=== PATIENT | female | born 2000 | race African-American/Black ===

== ENCOUNTER 2021-12-31 12:47 | Emergency (ER) | payer OTHER, SELFPAY ==
[2021-12-31 13:33] VITALS: BP 110/52; PULSE 74; RESP 18; TEMP 36.1; O2SAT 99; BMI 32.4
[2021-12-31 14:04] LABS: Bacteria Urine Moderate (10-30); Culture Indicated Urine Cult Not Indicated; Mucus Urine 2+ (Negative); RBC Urine 1-5/HPF (0-5/HPF); Squamous Epithelial Cell Urine 5-10 /HPF (0-5/HPF); WBC Urine 1-5/HPF (0-5/HPF)
--- NOTE | 2021-12-31 14:36 | ED_ITS ---
HPI - Back Pain/Injury <DANAE Gonzales - Last Filed: 12/31/21 14:44> General Chief Complaint: Back Pain/Injury Stated Complaint: Severe back pain from middle to tailbone Time Seen by Provider: 12/31/21 14:08 Source: patient History of Present Illness HPI Narrative: This is a 21-year-old female who presents to the emergency department complaining of 2 weeks with low back pain on either side of her hips. Patient states that this is not traumatic she did not have any known injury, she states that she was driving in the car for a few hours and had worsening bilateral muscular pain. She denies any weakness in her lower extremities, denies any urinary incontinence, fever, sharp shooting pain, or sensation changes. Patient denies any jumping or traumatic injuries recently. Patient states her primary care provider is on the [employer], and she has not gone to have this evaluated yet. Patient denies if she knows if she is , denies any fever, abdominal pain, flank pain, dysuria, urinary frequency or other symptom. Related Data Previous Rx's Medication Instructions Recorded lidocaine 5 % topical patch 1 patch TOPICAL DAILY #15 ea 12/31/21 methocarbamol 500 mg tablet 500 mg PO TID PRN #14 tab 12/31/21 naproxen 250 mg tablet 250 mg PO BID PRN #14 tab 12/31/21 Allergies Allergy/AdvReac Type Severity Reaction Status Date / Time No Known Drug Allergies Allergy Verified 12/31/21 13:39 Review of Systems <DANAE Gonzales - Last Filed: 12/31/21 14:44> Review of Systems Narrative: General: denies fever, chills, malaise, sweats, fatigue Head/Neck: denies headache, neck pain, dizziness Eyes: denies visual changes, eye pain Cardio: denies chest pain, palpitations, edema Respiratory: denies dyspnea, cough, orthopnea GI: denies abdominal pain, nausea, vomiting, or diarrhea : denies dysuria, hematuria, urinary retention, frequency or incontinence MSK: denies joint pain, muscle weakness, endorses low musculoskeletal back pain. Denies any radiation, states it is equal bilaterally, nontender to touch Skin: denies rash, itching, skin lesions or other Neuro: denies numbness, tingling Patient History <DANAE Gonzales - Last Filed: 12/31/21 14:44> Social History Smoking Status: Current every day smoker Smoking Status: Current every day smoker tobacco type: cigars and vaping alcohol intake frequency: a few times a month Substance Use Type: does not use Exam <DANAE Gonzales - Last Filed: 12/31/21 14:44> Narrative Exam Narrative: Independently reviewed vitals signs and nursing notes. General: cooperative, comfortable, in no acute distress, well developed and well groomed Head: atraumatic, symmetrical facial expressions Neck: supple, atraumatic, without lymphadenopathy. Eyes: pupils equal round and reactive, EOMI, conjunctiva normal Nose: nares patent, no rhinorrhea Mouth/Throat: uvula midline, moist mucus membranes Cardiovascular: regular rate and rhythm, no peripheral edema, warm extremities Respiratory: normal effort, able to speak in complete sentences, no audible wheezing, stridor, or rales. No retractions or tachypnea. GI: abdomen soft, nontender to palpation, nondistended, no CVA tenderness or flank pain to palpation MSK: moves all extremities, ambulatory w/steady gait, neurovascularly intact, no weakness, no exacerbation of pain with leg lift, strength is grossly equal bilaterally, neurovascularly intact Skin: brisk capillary refill, no rash, no erythema Neuro: normal speech and cognition, A&O x3, normal tone Psych: mental status is grossly normal, congruent mood, normal affect, pleasant and cooperative Initial Vital Signs Initial Vital Signs: Vital Signs Temperature 97.0 F L 12/31/21 13:33 Pulse Rate 74 12/31/21 13:33 Respiratory Rate 18 12/31/21 13:33 Blood Pressure 110/52 L 12/31/21 13:33 Pulse Oximetry 99 12/31/21 13:33 <Jolene Wilkins MD - Last Filed: 01/01/22 07:39> Initial Vital Signs Initial Vital Signs: Vital Signs Temperature 97.0 F L 12/31/21 13:33 Pulse Rate 74 12/31/21 13:33 Respiratory Rate 18 12/31/21 13:33 Blood Pressure 110/52 L 12/31/21 13:33 Pulse Oximetry 99 12/31/21 13:33 Course <DANAE Gonzales - Last Filed: 12/31/21 14:44> Orders Ordered: Discontinued Medications Acetaminophen (Acetaminophen 325 Mg Tablet) 650 mg PO NOW ONE Stop: 12/31/21 14:17 Last Admin: 12/31/21 14:37 Dose: 650 mg Documented by: ATAYLOR Ketorolac Tromethamine (Ketorolac 30 Mg/Ml Vial) 15 mg IM NOW ONE Stop: 12/31/21 14:17 Last Admin: 12/31/21 14:37 Dose: 15 mg Documented by: ATAYLOR Lidocaine (Lidocaine Patch 1 Each Adh..Patch) 1 each TOP NOW ONE Stop: 12/31/21 14:17 Last Admin: 12/31/21 14:38 Dose: 1 each Documented by: DOMONIQUEYLROE Methocarbamol (Methocarbamol 500 Mg Tablet) 500 mg PO NOW ONE Stop: 12/31/21 14:17 Last Admin: 12/31/21 14:37 Dose: 500 mg Documented by: VERONICA Vital Signs Vital signs: Vital Signs - 8 hr 12/31/21 13:33 Temperature 97.0 F L Pulse Rate 74 Respiratory Rate 18 Blood Pressure 110/52 L Pulse Oximetry 99 <Jolene Wilkins MD - Last Filed: 01/01/22 07:39> Orders Ordered: Discontinued Medications Acetaminophen (Acetaminophen 325 Mg Tablet) 650 mg PO NOW ONE Stop: 12/31/21 14:17 Last Admin: 12/31/21 14:37 Dose: 650 mg Documented by: ATAYLOR Ketorolac Tromethamine (Ketorolac 30 Mg/Ml Vial) 15 mg IM NOW ONE Stop: 12/31/21 14:17 Last Admin: 12/31/21 14:37 Dose: 15 mg Documented by: ATAYLOR Lidocaine (Lidocaine Patch 1 Each Adh..Patch) 1 each TOP NOW ONE Stop: 12/31/21 14:17 Last Admin: 12/31/21 14:38 Dose: 1 each Documented by: DOMONIQUEYLOR Methocarbamol (Methocarbamol 500 Mg Tablet) 500 mg PO NOW ONE Stop: 12/31/21 14:17 Last Admin: 12/31/21 14:37 Dose: 500 mg Documented by: VERONICA Vital Signs Vital signs: Vital Signs - 8 hr 12/31/21 13:33 Temperature 97.0 F L Pulse Rate 74 Respiratory Rate 18 Blood Pressure 110/52 L Pulse Oximetry 99 MDM - Back Pain/Injury <Wilma DANAE Long - Last Filed: 12/31/21 14:44> Lab Data Labs: Lab Results 12/31/21 Range/Units 13:45 Urine RBC 1-5/hpf (0-5/HPF) Urine WBC 1-5/hpf (0-5/HPF) Ur Squamous Epith Cells 5-10 /hpf H (0-5/HPF) Urine Bacteria Moderate (10-30) H (None) Urine Mucus 2+ H (Negative) Ur Culture Indicated? Cult not indicated Point of Care Testing Test Results Negative Urine Dip Bedside Urine Glucose Negative Bedside Urine Bilirubin - Negative Bedside Urine Ketone - Negative Urine Specific [place] 1.02 Bedside Urine Occult Blood - Negative Bedside Urine pH 6 Bedside Urine Protein +/- 15 Bedside Urine Urobilinogen - Negative Bedside Urine Nitrite - Negative Bedside Urine Leukocytes - Negative Esterase MDM Narrative Medical decision making narrative: This is a 21-year-old female presents to the emergency department complaining of 2 weeks of low back pain without injury or trauma. She is afebrile, denies any dysuria, abdominal pain, nausea vomiting, or any other symptom. Her strength is grossly equal bilaterally, she is ambulatory, denies any sharp shooting pains or radiation of her bilateral lumbar pain. She states it feels like muscle spasms and feels tense. On exam patient did not have any point tenderness to her spine, she is without any neuro deficit, this is most likely a muscle strain muscle tension. She denies any incontinence, weakness, alteration in her gait or other pain. Recommend that she follow-up with her primary care provider who is at the [facility] and ask for referral to physical therapy. Patient was given strict return precautions. Urine was negative, urine microscopy showed moderate bacteria, no blood or white blood cells. Patient is asymptomatic without dysuria or urinary frequency. No CVA tenderness. No antibiotics prescribed. Patient was given lidocaine patch, methocarbamol, Toradol in the emergency department, and prescribed lidocaine patches, methocarbamol, naproxen for pain. Multiple etiologies of back pain considered including; Epidural abscess, cauda equina, mass occupying lesion, lumbar fracture, sciatica, intra-abdominal pathology chronic neuropathic pain and other considered. Patient is appropriate and amenable to discharge home. Vital signs are stable on repeat examination is unremarkable. Patient has been informed of results. Patient has been given strict return to ER precautions for any new or worsening symptoms. Patient understands to follow up closely with outpatient providers as instructed. Patient understands plan and agrees to discharge home. All questions and concerns answered at this time. <Jolene Wilkins MD - Last Filed: 01/01/22 07:39> Lab Data Labs: Lab Results 12/31/21 Range/Units 13:45 Urine RBC 1-5/hpf (0-5/HPF) Urine WBC 1-5/hpf (0-5/HPF) Ur Squamous Epith Cells 5-10 /hpf H (0-5/HPF) Urine Bacteria Moderate (10-30) H (None) Urine Mucus 2+ H (Negative) Ur Culture Indicated? Cult not indicated Point of Care Testing Test Results Negative Urine Dip Bedside Urine Glucose Negative Bedside Urine Bilirubin - Negative Bedside Urine Ketone - Negative Urine Specific [place] 1.02 Bedside Urine Occult Blood - Negative Bedside Urine pH 6 Bedside Urine Protein +/- 15 Bedside Urine Urobilinogen - Negative Bedside Urine Nitrite - Negative Bedside Urine Leukocytes - Negative Esterase Discharge Plan Departure Patient Disposition: Home Clinical Impression: Strain of lumbar region Qualifiers: Encounter type: initial encounter Qualified Code(s): S39.012A - Strain of muscle, fascia and tendon of lower back, initial encounter Instructions: DI for Muscle Strain, DI for Back Spasm Activity Restrictions/Additional Instructions: *You have been diagnosed with low back pain and muscle spasms. This does not sound like sciatica and sounds like musculoskeletal pain. Please use light activity like walking in gentle stretching to loosen up, heat, Tylenol, ibuprofen as needed, lidocaine patches, and muscle relaxers as you need them to get through the weekend until you can follow-up with your primary care provider and get a referral for physical therapy. I recommend physical therapy over medications that it will take some time to get in. Please do all these things and see if you get better. Wishing you the best. *What to do: *Please continue to take your regular medications as directed. [x ] New medication prescriptions sent to your pharmacy: [[facility]] [ ] New medication written as a paper prescription [ ] No new medications given *Please follow up with your primary care provider in 2-3 days, call for an appointment. Let them know you were seen in the Emergency Department and that we asked that you be seen for follow-up. We will electronically transmit a record of today's note if your PCP is in our system *If you do not have a primary care provider please contact [phone] to establish care with one of the [facility] primary care providers. *Return to Emergency Department if you should have any new, worsening or concerning symptoms, such as [fever greater than 101F, chills, worsening pain, persistent vomiting or other bothersome symptoms] Prescriptions: New methocarbamol 500 mg tablet 500 mg PO TID PRN (Reason: muscle spasm) Qty: 14 0RF lidocaine 5 % adhesive patch,medicated 1 patch topical DAILY Qty: 15 0RF Rx Instructions: leave on most painful area for up to 12 hrs naproxen 250 mg tablet 250 mg PO BID PRN (Reason: pain) Qty: 14 0RF Rx Instructions: Please take with food and water <Jolene Wilkins MD - Last Filed: 01/01/22 07:39> Cosign ED Attending Cosignature Attestation: I was immediately available in the department for consultation throughout this patient's visit. I agree with documentation as above. Jolene Wilkins MD
[2021-12-31] MEDS: KETOROLAC 30 MG/ML VIAL 15 MG IM (14:37)
[2021-12-31] MEDS: methocarbamoL 500 MG TABLET PO (14:37)
[2021-12-31] MEDS: ACETAMINOPHEN 325 MG TABLET 650 MG PO (14:37)
[2021-12-31] MEDS: LIDOCAINE PATCH 1 EACH ADH..PATCH TOP (14:38)
== END 2021-12-31 15:01 | disposition home or self-care (01) ==
PROVIDERS: Emergency Medicine; Emergency Provider Nurse Practitioner Critical Care Medicine
DX: S39.012A Strain of muscle, fascia and tendon of lower back, initial encounter (principal); F17.290 Nicotine dependence, other tobacco product, uncomplicated; X58.XXXA Exposure to other specified factors, initial encounter
CPT/HCPCS: 81003; 81015; 81025; 96372; 99283; 99284; J1885

== ENCOUNTER → 2023-01-18 18:18 | Outpatient (CLI) | payer OTHER, SELFPAY ==
--- NOTE | 2023-01-18 | DI.MRI.S_ITS ---
PROCEDURE: MR ORBITS FACE NECK WO/W CON INDICATIONS: [place] of optic disc, unspecified eye TECHNIQUE: Noncontrast sagittal T1 spin echo, axial FLAIR, axial gradient echo, axial diffusion and ADC acquired through the brain. Coronal STIR, thin-slice axial T1 spin echo through the orbits. After the administration of contrast, thin-slice axial and coronal T1 spin echo with fat saturation through the orbits, axial and coronal and sagittal T1 spin echo with fat saturation through the brain. COMPARISON: None. FINDINGS: Image quality: Excellent. Orbits: Globes are symmetrical. The optic nerves are normal in size, without abnormal signal or enhancement. No retrobulbar masses or fat abnormalities. The extra-ocular muscles are normal and symmetric in appearance. Lacrimal glands are normal. Optic chiasm is normal. Periorbital soft tissues appear normal. CSF spaces: Ventricles are normal in size and shape. Basal cisterns are patent. No extra-axial fluid collections. Brain: No intracranial bleeds or mass effects. No abnormal intracranial enhancement. Newell-white matter interface is intact. Diffusion weighted images demonstrate no acute ischemic insults. Pituitary gland appears normal, without sellar or suprasellar masses. Brainstem appears normal. Normal intravascular flow voids are present. Skull and face: Calvarial marrow is normal in signal. Sinuses: Sinuses and mastoids are clear. IMPRESSION: 1. No acute intracranial process. 2. Globes and orbits are unremarkable. Dictated by: Camilla Hercules M.D. on 01/19/2023 at 9:47 Approved by: Camilla Hercules M.D. on 01/19/2023 at 9:52
== END ==
PROVIDERS: Referring Provider Optometrist; Visit Provider Optometrist
DX: H47.329 Drusen of optic disc, unspecified eye (principal)
CPT/HCPCS: 70543; A9579

== ENCOUNTER 2023-05-24 16:43 | Emergency (ER) | payer OTHER, SELFPAY ==
[2023-05-24 16:48] VITALS: BP 137/82; PULSE 81; RESP 18; TEMP 36.7; O2SAT 100; BMI 34.2
--- NOTE | 2023-05-24 18:12 | ED.HA ---
HPI - Headache General Chief Complaint: Headache Stated Complaint: migraines and cramps Time Seen by Provider: 05/24/23 18:06 Mode of arrival: Ambulatory History of Present Illness HPI Narrative: 22-year-old female nonsmoker presents with a chief complaint of episodic headaches that happen most days. She states that this has been going on for many months if not longer and might be increasing in frequency. She is not currently having a headache but states she did earlier and wanted to be checked out. She states they seem to come and go, sometimes going away quickly other times lasting a few hours. When present there is no obvious provocation or palliation, no radiation, no recent trauma or injury, no fever, no neck pain. She is been seen and evaluated on multiple occasions and has a consultation with a headache specialist. She is had advanced imaging even MRI without any significant findings. Additionally she states that she is been having some left-sided abdominal cramping off and on for the past few weeks. There is no obvious provocation, palliation or radiation. No nausea, vomiting or diarrhea. No change in medications or diet. No dysuria, frequency or urgency, no vaginal bleeding or discharge Related Data Previous Rx's Medication Instructions Recorded lidocaine 5 % topical patch 1 patch topical DAILY #15 ea 12/31/21 methocarbamol 500 mg tablet 500 mg PO TID PRN muscle spasm #14 12/31/21 tabs naproxen 250 mg tablet 250 mg PO BID PRN pain #14 tabs 12/31/21 Allergies Allergy/AdvReac Type Severity Reaction Status Date / Time No Known Drug Allergies Allergy Verified 05/24/23 16:54 Review of Systems Review of Systems Narrative: GENERAL: Denies chills, fatigue, malaise, fever, sweats. HEENT: Denies sinus pain, ear pain, sore throat, difficulty swallowing, dizziness. RESPIRATORY: Denies dyspnea, cough, wheezing, hemoptysis, sputum. CARDIOVASCULAR: Denies chest pain, palpitations, orthopnea, edema, GASTROINTESTINAL: See HPI : Denies dysuria, frequency, incontinence, hematuria, urinary retention. MUSCULOSKELETAL: denies weakness, joint pain, or bony pain SKIN: Denies rash, skin lesions, or other NEUROLOGIC: See HPI PSYCHIATRIC: No concerning psychosocial issues. 12 point review of systems is negative except for those stated above Patient History Social History (Reviewed 05/25/23 @ 03:08 by MIQUEL Salmeron Smoking Status: Former smoker Smoking Status: Former smoker tobacco type: cigars and vaping alcohol intake frequency: holidays/special occasions only Substance Use Type: does not use Exam Narrative Exam Narrative: GENERAL: [22] year old patient appears stated age. Well-developed patient, in mild distress. HEAD: Atraumatic. Normocephalic. EYES: Pupils equal round and reactive. Extraocular motions intact. No scleral icterus. No injection or drainage. ENT: Nose without bleeding, purulent drainage. Throat without erythema, tonsillar hypertrophy or exudate. Airway patent. NECK: Trachea midline. Non tender CARDIOVASCULAR: Regular rate and rhythm without murmurs, gallops, or rubs. RESPIRATORY: Clear to auscultation. Breath sounds equal bilaterally. No wheezes, rales, or rhonchi. GASTROINTESTINAL: Abdomen soft, non-tender, nondistended. EXTREMITIES: No edema or joint tenderness. BACK: Nontender without deformity or crepitance. No flank tenderness. NEURO: AOx3. SKIN: No rash or erythema of visible areas Initial Vital Signs Initial Vital Signs: Vital Signs Temperature 98.0 F 05/24/23 16:48 Pulse Rate 81 05/24/23 16:48 Respiratory Rate 18 05/24/23 16:48 Blood Pressure 137/82 05/24/23 16:48 Pulse Oximetry 100 05/24/23 16:48 Oxygen Delivery Method Room Air 05/24/23 16:48 Course Orders Ordered: ED Orders 05/24/23 19:39 XR acute abdomen series Stat 05/24/23 19:55 CBC Auto Diff [Complete Blood Count AUTO DIFF] Stat CMP [Comprehensive Metabolic Panel] Stat Vital Signs Vital signs: Vital Signs - 8 hr 05/24/23 20:24 Pulse Rate 74 Blood Pressure 104/66 Pulse Oximetry 99 Oxygen Delivery Method Room Air MDM - Headache Lab Data 05/24/23 19:55 05/24/23 19:55 Labs: Lab Results 05/24/23 05/24/23 Range/Units 19:55 19:55 WBC 7.3 (4.5-11.0) X10^3/uL RBC 4.55 (4.0-5.2) X10^6/uL Hgb 12.2 (12.0-16.0) g/dL Hct 37.7 (36-46) % MCV 82.8 (80-100) fL MCH 26.9 (26-34) PG MCHC 32.5 (30-36) % RDW 13.9 (11.6-14.8) % Plt Count 253 (150-400) X10^3/uL Neut % (Auto) 51.0 (50-75) % Lymph % (Auto) 38.7 (25-40) % [place] % (Auto) 8.8 (3-14) % Eos % (Auto) 0.8 L (2-4) % Baso % (Auto) 0.7 (0-2) % Neut # (Auto) 3700 (5741-4152) /uL Lymph # (Auto) 2800 (3059-7597) /uL [place] # (Auto) 600 (0-900) /uL Eos # (Auto) 100 (0-450) /uL Baso # (Auto) 100 (0-100) /uL Sodium 136 L (137-145) mmol/L Potassium 4.3 (3.4-5.1) mmol/L Chloride 102 (98-107) mmol/L Carbon Dioxide 24 (22-32) mmol/L BUN 16 (7-17) mg/dL Creatinine 0.69 (0.52-1.04) mg/dL Estimated GFR > 60 (>60) mL/min BUN/Creatinine Ratio 23.2 H (6-22) Glucose 97 (70-100) mg/dL Calcium 9.6 (8.4-10.2) mg/dL Total Bilirubin 0.2 (0.2-1.3) mg/dL AST 24 (14-36) IU/L ALT 22 (<35) IU/L Alkaline Phosphatase 60 (38-126) U/L Total Protein 8.4 H (6.3-8.2) g/dL Albumin 4.4 (3.5-5.0) g/dL Globulin 4.0 (1.7-4.1) g/dL Albumin/Globulin Ratio 1.1 (1.0-2.8) Point of Care Testing Test Results Negative Urine Dip Bedside Urine Glucose Negative Bedside Urine Bilirubin - Negative Bedside Urine Ketone - Negative Urine Specific [place] 1.030 Bedside Urine Occult Blood - Negative Bedside Urine pH 6.0 Bedside Urine Protein - Negative Bedside Urine Urobilinogen - Negative Bedside Urine Nitrite - Negative Bedside Urine Leukocytes - Negative Esterase MDM Narrative Medical decision making narrative: [22] year old patient presents with chronic headaches, though not present now as well as 3 weeks of left-sided crampy abdominal pain Multiple etiologies for patient's symptoms considered including, but not limited to: [Bowel obstruction versus reflux versus IBS versus other versus UTI versus hypertensive encephalopathy versus intracranial hemorrhage versus meningitis versus migraine versus other] Prior Charts reviewed in our EMR Primary Historian: patient Imaging reviewed: Acute abdominal series without significant findings Patient's symptoms improved over duration of stay with above-stated therapies. Findings and discharge diagnosis discussed with patient/family followed by verbalization of understanding Return precautions discussed with patient/family whom verbalize understanding of diagnosis and plan Discharge Plan Departure Patient Disposition: Home Clinical Impression: Headache Instructions: DI for Headache Activity Restrictions/Additional Instructions: *You have been diagnosed with [ Chronic episodic headaches. As we discussed your history and physical exam are reassuring here and there is no evidence of meningitis, bleeding in your brain or other causes of serious headaches] *What to do: *Take medications as directed *Follow up with your primary care provider in 2-3 days, call for an appointment. Let them know you were seen in the Emergency Department and that we ask that you be seen in follow up *Return to ER if you should have any new, worsening or concerning symptoms, such as [ fever > 101F, neck pain or stiffness, vomiting, confusion, seizure, focal weakness, vision change, speech deficit or other concerning symptoms ] Prescriptions: No Action methocarbamol 500 mg tablet 500 mg PO TID PRN (Reason: muscle spasm) Qty: 14 0RF lidocaine 5 % adhesive patch,medicated 1 patch topical DAILY Qty: 15 0RF Rx Instructions: leave on most painful area for up to 12 hrs naproxen 250 mg tablet 250 mg PO BID PRN (Reason: pain) Qty: 14 0RF Rx Instructions: Please take with food and water Referrals: ProviderDiana [Primary Care Provider] - Stand Alone Forms: Patient Portal/API
--- NOTE | 2023-05-24 19:39 | DI.RAD.S_ITS ---
PROCEDURE: XR ACUTE ABDOMEN SERIES INDICATIONS: left sided cramping abdominal pain TECHNIQUE: One view chest and two views of the abdomen were acquired. COMPARISON: None. FINDINGS: Surgical changes and devices: None. Chest: Lungs are clear. Heart size is normal. No pleural effusions. No pneumoperitoneum. Abdomen: Bowel gas pattern is within normal limits. No suspicious calcifications. Bones: No suspicious bony lesions. There is a mild S-shaped curvature of the spine with a rightward curvature in the thoracic spine and leftward curvature at the thoracolumbar junction IMPRESSION: 1. No acute intra-abdominal radiographic abnormality. Dictated by: Brijesh Jaquez M.D. on 05/24/2023 at 20:59 Approved by: Brijesh Jaquez M.D. on 05/24/2023 at 21:00
[2023-05-24 20:11] LABS: Add Manual Diff / Slide Review NO; Basophils Absolute Auto 100 /uL (0-100); Basophils Percent Auto 0.7 % (0-2); Eosinophils Absolute Auto 100 /uL (0-450); Eosinophils Percent Auto 0.8 % (2-4); Hematocrit 37.7 % (36-46); Hemoglobin 12.2 g/dL (12.0-16.0); Lymphocytes Absolute Auto 2800 /uL (1100-4500); Lymphocytes Percent Auto 38.7 % (25-40); Mean Corpuscular HGB Conc 32.5 % (30-36); Mean Corpuscular Hemoglobin 26.9 PG (26-34); Mean Corpuscular Volume 82.8 fL (80-100); Monocytes Absolute Auto 600 /uL (0-900); Monocytes Percent Auto 8.8 % (3-14); Neutrophils Absolute Auto 3700 /uL (1500-7000); Platelet Count 253 X10^3/uL (150-400); Red Blood Cell Count 4.55 X10^6/uL (4.0-5.2); Red Cell Distribution Width 13.9 % (11.6-14.8); White Blood Cell Count 7.3 X10^3/uL (4.5-11.0)
[2023-05-24 20:16] LABS: Alanine Aminotransferase 22 IU/L (<35); Albumin 4.4 g/dL (3.5-5.0); Albumin Globulin Ratio 1.1 (1.0-2.8); Alkaline Phosphatase 60 U/L (38-126); Aspartate Aminotransferase 24 IU/L (14-36); BUN Creatinine Ratio 23.2 (6-22); Bilirubin Total 0.2 mg/dL (0.2-1.3); Blood Urea Nitrogen 16 mg/dL (7-17); Calcium 9.6 mg/dL (8.4-10.2); Carbon Dioxide 24 mmol/L (22-32); Chloride 102 mmol/L (98-107); Estimated Glomerular Filt Rate > 60 mL/min (>60); Glucose 97 mg/dL (70-100); HEMOLYSIS < 15 (0-50); Potassium 4.3 mmol/L (3.4-5.1); Sodium 136 mmol/L (137-145); Total Protein 8.4 g/dL (6.3-8.2)
[2023-05-24 20:24] VITALS: BP 104/66; PULSE 74; O2SAT 99
== END 2023-05-24 21:24 | disposition home or self-care (01) ==
PROVIDERS: Emergency Provider Emergency Medicine
DX: R51.9 Headache, unspecified (principal)
CPT/HCPCS: 36415; 74022; 80053; 81003; 81025; 85025; 99284

== ENCOUNTER → 2023-05-30 15:27 | Outpatient (CLI) | payer OTHER, SELFPAY ==
--- NOTE | 2023-05-30 15:30 | DI.MRI.S_ITS ---
PROCEDURE: MR ORBITS FACE NECK WO/W CON INDICATIONS: Papilledema with increased intracranial pressure TECHNIQUE: Noncontrast sagittal T1 spin echo, axial FLAIR, axial gradient echo, axial diffusion and ADC acquired through the brain. Coronal STIR, thin-slice axial T1 spin echo through the orbits. After the administration of contrast, thin-slice axial and coronal T1 spin echo with fat saturation through the orbits, axial and coronal and sagittal T1 spin echo with fat saturation through the brain. COMPARISON: [facility], MR, MR ORBITS FACE NECK WO/W CON, 01/18/2023, 19:13. FINDINGS: Image quality: Excellent. Orbits: Globes are symmetrical. The optic nerves are normal in size, without abnormal signal or enhancement. No retrobulbar masses or fat abnormalities. The extra-ocular muscles are normal and symmetric in appearance. Lacrimal glands are normal. Optic chiasm is normal. Periorbital soft tissues appear normal. CSF spaces: Ventricles are normal in size and shape. Basal cisterns are patent. No extra-axial fluid collections. Brain: No intracranial bleeds or mass effects. No abnormal intracranial enhancement. Newell-white matter interface is intact. Diffusion weighted images demonstrate no acute ischemic insults. Pituitary gland appears normal, without sellar or suprasellar masses. Brainstem appears normal. Normal intravascular flow voids are present. Skull and face: Calvarial marrow is normal in signal. Sinuses: Sinuses and mastoids are clear. IMPRESSION: Unremarkable orbits study, without masses or abnormal enhancement seen. No significant intracranial abnormality is identified. No masses or abnormal enhancement can be seen. Dictated by: Anish Rosenthal M.D. on 05/30/2023 at 15:41 Approved by: Anish Rosenthal M.D. on 05/30/2023 at 15:42
== END ==
PROVIDERS: Referring Provider Optometrist; Visit Provider Optometrist
DX: H47.11 Papilledema associated with increased intracranial pressure (principal)
CPT/HCPCS: 70553

== ENCOUNTER 2023-06-15 11:41 | Emergency (ER) | payer OTHER, SELFPAY ==
[2023-06-15 12:11] VITALS: BP 102/59; PULSE 64; RESP 18; TEMP 36.5; O2SAT 100; BMI 33.6
--- NOTE | 2023-06-15 14:38 | ED.BACK ---
HPI - Back Pain/Injury <Dorothea Wright MD - Last Filed: 06/21/23 07:19> General Chief Complaint: Back Pain/Injury Stated Complaint: sent by [facility] back pain/HX spinal tap Time Seen by Provider: 06/15/23 14:04 Source: patient History of Present Illness HPI Narrative: 22-year-old female presents for evaluation of lumbar back pain. Yesterday patient had therapeutic and diagnostic lumbar puncture at outside hospital for intracranial hypertension. Patient went home after her procedure yesterday and had no issues, however when she woke up this morning her entire lumbar back was very painful. Denies bowel or bladder incontinence, denies saddle anesthesia, denies difficulty walking. Took aspirin at home without significant relief. Related Data Previous Rx's Medication Instructions Recorded lidocaine 5 % topical patch 1 patch topical DAILY #15 ea 12/31/21 methocarbamol 500 mg tablet 500 mg PO TID PRN muscle spasm #14 12/31/21 tabs naproxen 250 mg tablet 250 mg PO BID PRN pain #14 tabs 12/31/21 baclofen 20 mg tablet 20 mg PO TID PRN pain (scale score 06/15/23 4-6) #20 tabs suepzaerzv-dnfpdjkszfpqp-ectearme 1 cap PO Q4-6H PRN pain #20 caps 06/18/23 50 mg-300 mg-40 mg capsule (Fioricet) Allergies Allergy/AdvReac Type Severity Reaction Status Date / Time No Known Drug Allergies Allergy Verified 06/15/23 12:11 Review of Systems <Dorothea Wright MD - Last Filed: 06/21/23 07:19> Review of Systems Narrative: CONSTITUTIONAL- Denies: fever, chills, fatigue HEENT- Denies: sore throat, nosebleed, vision changes RESPIRATORY- Denies: shortness of breath, cough, wheezing CARDIAC- Denies: chest pain, edema, orthopnea GI- Denies: abdominal pain, nausea, vomiting, constipation, diarrhea - Denies: frequency, dysuria, hematuria, flank pain MSK-reports: Lumbar pain Denies: extremity pain, extremity swelling, joint pain, joint swelling SKIN- Denies: rash, itching, burn, swelling NEUROLOGICAL- Denies: headache, numbness, weakness, dizziness PSYCHIATRIC- Denies: anxiety, depression, suicidal ideation, homicidal ideation Patient History <Dorothea Wright MD - Last Filed: 06/21/23 07:19> Social History Smoking Status: Former smoker Smoking Status: Former smoker tobacco type: cigars and vaping alcohol intake frequency: holidays/special occasions only Substance Use Type: does not use Exam <Dorothea Wright MD - Last Filed: 06/21/23 07:19> Initial Vital Signs Initial Vital Signs: Vital Signs Temperature 97.7 F 06/15/23 12:11 Pulse Rate 64 06/15/23 12:11 Respiratory Rate 18 06/15/23 12:11 Blood Pressure 102/59 L 06/15/23 12:11 Pulse Oximetry 100 06/15/23 12:11 Oxygen Delivery Method Room Air 06/15/23 12:11 Const: Awake, alert, no acute distress, nontoxic appearing Eyes: PERRL, EOMI, conjunctiva normal ENT: Atraumatic, dentition normal, mucous membranes moist Cardiac: regular rate, regular rhythm RESP: unlabored, clear bilaterally, no wheezing GI: Atraumatic, soft, nontender, nondistended, no rebound, no guarding MSK: No midline vertebral tenderness, no step-offs, LP site clean, dry, intact, diffuse tenderness over lumbar back Skin: Warm, Dry, intact, no rashes Neuro: AO x3, CN II-XII grossly intact, moves all extremities Psych: affect normal, mood normal, not suicidal, not homicidal <Pranay Mallory MD - Last Filed: 06/15/23 18:39> Initial Vital Signs Initial Vital Signs: Vital Signs Temperature 97.7 F 06/15/23 12:11 Pulse Rate 64 06/15/23 12:11 Respiratory Rate 18 06/15/23 12:11 Blood Pressure 102/59 L 06/15/23 12:11 Pulse Oximetry 100 06/15/23 12:11 Oxygen Delivery Method Room Air 06/15/23 12:11 Course <Dorothea Wright MD - Last Filed: 06/21/23 07:19> Orders Ordered: Discontinued Medications Dexamethasone (Dexamethasone 10 Mg/Ml Vial) 10 mg IV NOW ONE Stop: 06/15/23 14:23 Last Admin: 06/15/23 15:06 Dose: 10 mg Documented By: BAUDILIO Ketorolac Tromethamine (Ketorolac 30 Mg/Ml Vial) 15 mg IV NOW ONE Stop: 06/15/23 14:23 Last Admin: 06/15/23 15:05 Dose: 15 mg Documented By: BAUDILIO Lidocaine (Lidocaine Patch 1 Each Adh..Patch) 1 each TOP NOW ONE Stop: 06/15/23 14:23 Last Admin: 06/15/23 15:04 Dose: 1 each Documented By: BAUDILIO Methocarbamol (Methocarbamol 500 Mg Tablet) 750 mg PO NOW ONE Stop: 06/15/23 14:23 Last Admin: 06/15/23 15:04 Dose: 750 mg Documented By: BAUDILIO Morphine Sulfate (Morphine 4 Mg/Ml Inj) 4 mg IV NOW ONE Stop: 06/15/23 14:27 Last Admin: 06/15/23 15:08 Dose: 4 mg Documented By: BAUDILIO Ondansetron HCl (Ondansetron 4 Mg Odt) 4 mg SL NOW ONE Stop: 06/15/23 16:31 Last Admin: 06/15/23 16:36 Dose: 4 mg Documented By: BAUDILIO Vital Signs Vital signs: Vital Signs - 8 hr 06/15/23 12:11 06/15/23 16:30 Temperature 97.7 F Pulse Rate 64 65 Respiratory Rate 18 16 Blood Pressure 102/59 L 109/57 L Pulse Oximetry 100 100 Oxygen Delivery Method Room Air Room Air <Pranay Mallory MD - Last Filed: 06/15/23 18:39> Orders Ordered: Discontinued Medications Dexamethasone (Dexamethasone 10 Mg/Ml Vial) 10 mg IV NOW ONE Stop: 06/15/23 14:23 Last Admin: 06/15/23 15:06 Dose: 10 mg Documented By: BAUDILIO Ketorolac Tromethamine (Ketorolac 30 Mg/Ml Vial) 15 mg IV NOW ONE Stop: 06/15/23 14:23 Last Admin: 06/15/23 15:05 Dose: 15 mg Documented By: BAUDILIO Lidocaine (Lidocaine Patch 1 Each Adh..Patch) 1 each TOP NOW ONE Stop: 06/15/23 14:23 Last Admin: 06/15/23 15:04 Dose: 1 each Documented By: BAUDILIO Methocarbamol (Methocarbamol 500 Mg Tablet) 750 mg PO NOW ONE Stop: 06/15/23 14:23 Last Admin: 06/15/23 15:04 Dose: 750 mg Documented By: BAUDILIO Morphine Sulfate (Morphine 4 Mg/Ml Inj) 4 mg IV NOW ONE Stop: 06/15/23 14:27 Last Admin: 06/15/23 15:08 Dose: 4 mg Documented By: BAUDILIO Ondansetron HCl (Ondansetron 4 Mg Odt) 4 mg SL NOW ONE Stop: 06/15/23 16:31 Last Admin: 06/15/23 16:36 Dose: 4 mg Documented By: BAUDILIO Vital Signs Vital signs: Vital Signs - 8 hr 06/15/23 12:11 06/15/23 16:30 Temperature 97.7 F Pulse Rate 64 65 Respiratory Rate 18 16 Blood Pressure 102/59 L 109/57 L Pulse Oximetry 100 100 Oxygen Delivery Method Room Air Room Air MDM - Back Pain/Injury <Dorothea Wright MD - Last Filed: 06/21/23 07:19> Differential Diagnosis Differential diagnosis: Likely lumbar radiculopathy, sciatica and strain of lumbar region Lab Data 06/15/23 14:52 06/15/23 14:52 Labs: Lab Results 06/15/23 Range/Units 14:52 WBC 5.2 (4.5-11.0) X10^3/uL RBC 4.41 (4.0-5.2) X10^6/uL Hgb 12.1 (12.0-16.0) g/dL Hct 36.3 (36-46) % MCV 82.3 (80-100) fL MCH 27.3 (26-34) PG MCHC 33.2 (30-36) % RDW 14.0 (11.6-14.8) % Plt Count 266 (150-400) X10^3/uL Neut % (Auto) 40.8 L (50-75) % Lymph % (Auto) 48.1 H (25-40) % Roberts % (Auto) 9.6 (3-14) % Eos % (Auto) 1.1 L (2-4) % Baso % (Auto) 0.4 (0-2) % Neut # (Auto) 2100 (8367-9300) /uL Lymph # (Auto) 2500 (4579-5032) /uL Roberts # (Auto) 500 (0-900) /uL Eos # (Auto) 100 (0-450) /uL Baso # (Auto) 0 (0-100) /uL Sodium 135 L (137-145) mmol/L Potassium 4.2 (3.4-5.1) mmol/L Chloride 100 (98-107) mmol/L Carbon Dioxide 28 (22-32) mmol/L BUN 9 (7-17) mg/dL Creatinine 0.60 (0.52-1.04) mg/dL Estimated GFR > 60 (>60) mL/min BUN/Creatinine Ratio 15.0 (6-22) Glucose 97 (70-100) mg/dL Calcium 9.8 (8.4-10.2) mg/dL Total Bilirubin 0.4 (0.2-1.3) mg/dL AST 31 (14-36) IU/L ALT 22 (<35) IU/L Alkaline Phosphatase 68 (38-126) U/L Total Protein 8.3 H (6.3-8.2) g/dL Albumin 4.4 (3.5-5.0) g/dL Globulin 3.9 (1.7-4.1) g/dL Albumin/Globulin Ratio 1.1 (1.0-2.8) Serum , Qual Negative (Negative) [facility] Narrative Medical decision making narrative: Uncomfortable but nontoxic appearing patient presenting for lumbar back pain after LP yesterday. No focal neurologic deficit, pain is diffuse across the lumbar spine. Given recent instrumentation we will order basic laboratory work as well as CT with contrast. 1645: CT shows minimal subcutaneous fat stranding without abscess. Laboratory work is pending. Care of patient transferred to Dr. Mallory at this time. <Pranay Mallory MD - Last Filed: 06/15/23 18:39> Lab Data Labs: Lab Results 06/15/23 Range/Units 14:52 WBC 5.2 (4.5-11.0) X10^3/uL RBC 4.41 (4.0-5.2) X10^6/uL Hgb 12.1 (12.0-16.0) g/dL Hct 36.3 (36-46) % MCV 82.3 (80-100) fL MCH 27.3 (26-34) PG MCHC 33.2 (30-36) % RDW 14.0 (11.6-14.8) % Plt Count 266 (150-400) X10^3/uL Neut % (Auto) 40.8 L (50-75) % Lymph % (Auto) 48.1 H (25-40) % Roberts % (Auto) 9.6 (3-14) % Eos % (Auto) 1.1 L (2-4) % Baso % (Auto) 0.4 (0-2) % Neut # (Auto) 2100 (7310-6184) /uL Lymph # (Auto) 2500 (5710-4613) /uL Roberts # (Auto) 500 (0-900) /uL Eos # (Auto) 100 (0-450) /uL Baso # (Auto) 0 (0-100) /uL Sodium 135 L (137-145) mmol/L Potassium 4.2 (3.4-5.1) mmol/L Chloride 100 (98-107) mmol/L Carbon Dioxide 28 (22-32) mmol/L BUN 9 (7-17) mg/dL Creatinine 0.60 (0.52-1.04) mg/dL Estimated GFR > 60 (>60) mL/min BUN/Creatinine Ratio 15.0 (6-22) Glucose 97 (70-100) mg/dL Calcium 9.8 (8.4-10.2) mg/dL Total Bilirubin 0.4 (0.2-1.3) mg/dL AST 31 (14-36) IU/L ALT 22 (<35) IU/L Alkaline Phosphatase 68 (38-126) U/L Total Protein 8.3 H (6.3-8.2) g/dL Albumin 4.4 (3.5-5.0) g/dL Globulin 3.9 (1.7-4.1) g/dL Albumin/Globulin Ratio 1.1 (1.0-2.8) Serum , Qual Negative (Negative) Imaging Data CT lumbar spine: Radiologist's Impression: [address] [address] [address] Scan Report Signed Patient: Adela Jolly MR#: [id number] : 2000 Acct:[id number] Age/Sex: 22 / F Date of Service: 06/15/23 Loc: ED Accession Number: [id number] Procedure: CT lumbar spine w con Ordering Provider: Dorothea Wright MD PROCEDURE: CT LUMBAR SPINE W CON INDICATIONS: LUMBAR PAIN S/P SPINAL TAP YESTERDAY TECHNIQUE: After the administration of intravenous Isovue contrast, 3 mm thick sections acquired through the levels of interest. Sagittal and coronal reformats were then constructed. For radiation dose reduction, the following was used: automated exposure control. COMPARISON: None. FINDINGS: Image quality: Excellent. Bones: No fractures or dislocations. No suspicious osseous lesions. Soft tissues: Righ adenxal low attenuation foci. Miniimal dependent fluid. Minimal starnding in the subcutaneous fat of the lower back. No abscess. IMPRESSION: Very minima lnflammatory change in the subcutaneous fat. No abscess. Dictated by: Camilla Hercules M.D. on 06/15/2023 at 16:04 Approved by: Camilla Hercules M.D. on 06/15/2023 at 16:31 MDM Narrative Medical decision making narrative: Uncomfortable but nontoxic appearing patient presenting for lumbar back pain after LP yesterday. No focal neurologic deficit, pain is diffuse across the lumbar spine. Given recent instrumentation we will order basic laboratory work as well as CT with contrast. 1645: CT shows minimal subcutaneous fat stranding without abscess. Laboratory work is pending. Care of patient transferred to Dr. Mallory at this time. Dr. Mallory: Sign-out from Dr. Wright, CT imaging results are reassuring. Laboratory studies are reassuring. Likely not infectious source of her pain but likely muscle spasm. Likely discharge home. 5:36 p.m.. Spoke with patient. Pain is controlled at this time. Reviewed with her laboratory studies and imaging. Likely muscle spasm. Work note provided. Baclofen prescription provided. Nontoxic at discharge. Return precautions reviewed. She desires discharge home. 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 Discharge Plan Departure Patient Disposition: Home Clinical Impression: Lumbar back pain Instructions: DI for Low Back Pain Activity Restrictions/Additional Instructions: Please see family doctor next week for re-evaluation. Work note has been provided for you. Prescription medication for muscle relaxer has been provided for you. Please do keep moving and walking. Do not allow your back to remain it may worsen with the back spasms. Today's laboratory studies and CT scan imaging are reassuring. No infection seen. No antibiotics are indicated. Return if worse if any questions or concerns Prescriptions: New baclofen 20 mg tablet 20 mg PO TID PRN (Reason: pain (scale score 4-6)) Qty: 20 0RF No Action methocarbamol 500 mg tablet 500 mg PO TID PRN (Reason: muscle spasm) Qty: 14 0RF lidocaine 5 % adhesive patch,medicated 1 patch topical DAILY Qty: 15 0RF Rx Instructions: leave on most painful area for up to 12 hrs naproxen 250 mg tablet 250 mg PO BID PRN (Reason: pain) Qty: 14 0RF Rx Instructions: Please take with food and water dhcivazmsl-ghhfixovknjma-hzsx [Fioricet] 50-300-40 mg capsule 1 cap PO Q4-6H PRN (Reason: pain) Qty: 20 0RF Referrals: ProviderDiana [Primary Care Provider] - Stand Alone Forms: Patient Portal/API, Work Release Note
[2023-06-15] MEDS: methocarbamoL 500 MG TABLET 750 MG PO (15:04)
[2023-06-15] MEDS: LIDOCAINE PATCH 1 EACH ADH..PATCH TOP (15:04)
[2023-06-15] MEDS: KETOROLAC 30 MG/ML VIAL 15 MG IV (15:05)
[2023-06-15] MEDS: DEXAMETHASONE 10 MG/ML VIAL IV (15:06)
[2023-06-15] MEDS: MORPHINE 4 MG/ML INJ IV (15:08)
--- NOTE | 2023-06-15 15:30 | DI.CT.S_ITS ---
PROCEDURE: CT LUMBAR SPINE W CON INDICATIONS: LUMBAR PAIN S/P SPINAL TAP YESTERDAY TECHNIQUE: After the administration of intravenous Isovue contrast, 3 mm thick sections acquired through the levels of interest. Sagittal and coronal reformats were then constructed. For radiation dose reduction, the following was used: automated exposure control. COMPARISON: None. FINDINGS: Image quality: Excellent. Bones: No fractures or dislocations. No suspicious osseous lesions. Soft tissues: Righ adenxal low attenuation foci. Miniimal dependent fluid. Minimal starnding in the subcutaneous fat of the lower back. No abscess. IMPRESSION: Very minima lnflammatory change in the subcutaneous fat. No abscess. Dictated by: Camilla Hercules M.D. on 06/15/2023 at 16:04 Approved by: Camilla Hercules M.D. on 06/15/2023 at 16:31
[2023-06-15 16:30] VITALS: BP 109/57; PULSE 65; RESP 16; O2SAT 100
[2023-06-15] MEDS: ONDANSETRON 4 MG ODT SL (16:36)
[2023-06-15 16:41] LABS: Add Manual Diff / Slide Review NO; Basophils Absolute Auto 0 /uL (0-100); Basophils Percent Auto 0.4 % (0-2); Eosinophils Absolute Auto 100 /uL (0-450); Eosinophils Percent Auto 1.1 % (2-4); Hematocrit 36.3 % (36-46); Hemoglobin 12.1 g/dL (12.0-16.0); Lymphocytes Absolute Auto 2500 /uL (1100-4500); Lymphocytes Percent Auto 48.1 % (25-40); Mean Corpuscular HGB Conc 33.2 % (30-36); Mean Corpuscular Hemoglobin 27.3 PG (26-34); Mean Corpuscular Volume 82.3 fL (80-100); Monocytes Absolute Auto 500 /uL (0-900); Monocytes Percent Auto 9.6 % (3-14); Neutrophils Absolute Auto 2100 /uL (1500-7000); Neutrophils Percent Auto 40.8 % (50-75); Platelet Count 266 X10^3/uL (150-400); Red Blood Cell Count 4.41 X10^6/uL (4.0-5.2); White Blood Cell Count 5.2 X10^3/uL (4.5-11.0)
[2023-06-15 16:45] LABS: Alanine Aminotransferase 22 IU/L (<35); Albumin 4.4 g/dL (3.5-5.0); Albumin Globulin Ratio 1.1 (1.0-2.8); Alkaline Phosphatase 68 U/L (38-126); Aspartate Aminotransferase 31 IU/L (14-36); Bilirubin Total 0.4 mg/dL (0.2-1.3); Blood Urea Nitrogen 9 mg/dL (7-17); Calcium 9.8 mg/dL (8.4-10.2); Carbon Dioxide 28 mmol/L (22-32); Chloride 100 mmol/L (98-107); Estimated Glomerular Filt Rate > 60 mL/min (>60); Globulin 3.9 g/dL (1.7-4.1); Glucose 97 mg/dL (70-100); HEMOLYSIS 28 (0-50); Potassium 4.2 mmol/L (3.4-5.1); Sodium 135 mmol/L (137-145); Total Protein 8.3 g/dL (6.3-8.2)
[2023-06-15 16:46] LABS: Pregnancy Test Serum,Qual Negative (Negative)
== END 2023-06-15 17:44 | disposition home or self-care (01) ==
PROVIDERS: Emergency Medicine; Emergency Provider Emergency Medicine
DX: G97.1 Other reaction to spinal and lumbar puncture (principal); M54.50 Low back pain, unspecified
CPT/HCPCS: 36415; 72132; 80053; 84703; 85025; 96374; 96375; 99284; J1100; J1885; J2270; Q9967

== ENCOUNTER 2023-06-17 17:34 | Emergency (ER) | payer OTHER, SELFPAY ==
[2023-06-17 17:49] VITALS: BP 127/86; PULSE 69; RESP 16; TEMP 37.1; O2SAT 100; BMI 33.6
--- NOTE | 2023-06-17 22:34 | ED_ITS ---
HPI - Headache General Chief Complaint: Headache Stated Complaint: Headache t-1, To base of neck Time Seen by Provider: 06/17/23 19:46 Mode of arrival: Ambulatory History of Present Illness HPI Narrative: Patient is a 22-year-old female recently diagnosed with intracranial hypertension by LP by Neurology 5 days ago. 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 She was seen and evaluated here the day after her lumbar puncture with back pain. She had full workup including CT and blood work. She was given pain meds and discharged home. She reports that her headache is much worse when she stands or sits up it is better when she lies down. She is persistently nauseous no vomiting. No fever or chills. No numbness tingling or weakness or change in bowel or bladder habits. She has ongoing blurry vision but it is not any worse. She is not had any fever. She has some cervical pain now. Related Data Previous Rx's Medication Instructions Recorded lidocaine 5 % topical patch 1 patch topical DAILY #15 ea 12/31/21 methocarbamol 500 mg tablet 500 mg PO TID PRN muscle spasm #14 12/31/21 tabs naproxen 250 mg tablet 250 mg PO BID PRN pain #14 tabs 12/31/21 baclofen 20 mg tablet 20 mg PO TID PRN pain (scale score 06/15/23 4-6) #20 tabs cjyltxmapk-fpfbepuvsyolt-lnuaqiyj 1 cap PO Q4-6H PRN pain #20 caps 06/18/23 50 mg-300 mg-40 mg capsule (Fioricet) Allergies Allergy/AdvReac Type Severity Reaction Status Date / Time No Known Drug Allergies Allergy Verified 06/15/23 12:11 Review of Systems Review of Systems ROS Unobtainable: All systems reviewed & are unremarkable except as noted in HPI and below Patient History Social History Smoking Status: Former smoker Smoking Status: Former smoker tobacco type: cigars and vaping alcohol intake frequency: holidays/special occasions only Substance Use Type: does not use Exam Initial Vital Signs Initial Vital Signs: Vital Signs Temperature 98.8 F 06/17/23 17:49 Pulse Rate 69 06/17/23 17:49 Respiratory Rate 16 06/17/23 17:49 Blood Pressure 127/86 06/17/23 17:49 Pulse Oximetry 100 06/17/23 17:49 Oxygen Delivery Method Room Air 06/17/23 17:49 GENERAL: Alert pleasant 22-year-old female sitting upright HEENT: Head atraumatic,EOMI, pupils reactive, face symmetric, moist mucous membranes NECK: Mild paraspinal tenderness no guarding no rebound CARDIOVASCULAR: Regular rate and rhythm without murmurs, rubs or gallops. RESPIRATORY: Breath sounds equal bilaterally, no wheezes rales or rhonchi. ABDOMEN: Soft, nontender. Normoactive bowel sounds all 4 quadrants. No guarding or rebound. : No CVA tenderness EXTREMITIES: Normal range of motion, no clubbing or edema. Neurovascularly intact NEUROLOGICAL: Alert and oriented x4.Normal gait and speech. Cranial nerves II through XII grossly intact. SKIN: Warm, dry, no laceration, no petechiae, no rashes or lesions. Course Orders Ordered: Discontinued Medications Acetaminophen/Butalbital/Caffeine (Butalb/Apap/Caffeine 50/325/40 Tablet) 1 each PO NOW ONE Stop: 06/17/23 22:47 Last Admin: 06/17/23 23:35 Dose: 1 each Documented By: DINAH Acetazolamide (Acetazolamide 250 Mg Tablet) 250 mg PO NOW ONE Stop: 06/17/23 19:52 Last Admin: 06/17/23 23:35 Dose: 250 mg Documented By: DINAH Sodium Chloride (Normal Saline 0.9%) 1,000 mls @ 1,000 mls/hr IV BOLUS ONE Stop: 06/17/23 23:45 Last Infusion: 06/17/23 23:47 Dose: Infused Documented By: Admin: 06/17/23 23:10 Dose: 1,000 mls/hr Documented By: DINAH Ketorolac Tromethamine (Ketorolac 30 Mg/Ml Vial) 15 mg IV NOW ONE Stop: 06/17/23 22:47 Last Admin: 06/17/23 23:10 Dose: 15 mg Documented By: DINAH Ondansetron HCl (Ondansetron 4 Mg/2 Ml Inj) 4 mg IV NOW ONE Stop: 06/17/23 22:47 Last Admin: 06/17/23 23:09 Dose: 4 mg Documented By: SB Vital Signs Vital signs: Vital Signs - 8 hr 10/09/23 00:20 Temperature 98.6 F Pulse Rate 68 Respiratory Rate 16 Blood Pressure 105/56 L Pulse Oximetry 98 Oxygen Delivery Method Room Air MDM - Headache MDM Narrative Medical decision making narrative: Patient new diagnosis of intracranial hypertension presents today with ongoing headache. Reports that it is definitely better when she lies down worsened she stands up this is consistent with a post lumbar puncture headache though she d oes not have any of the significant risk factors. She is been trying to take medication at home unable to do so the time and it is not helping. She is afebrile no evidence of meningitis. She had full workup couple days ago for something similar. She is given IV fluids Diamox and Fioricet is overall feeling wait better. At this time no need for any further workup or admission. Discharge Plan Departure Patient Disposition: Home Clinical Impression: Headache, post-lumbar puncture Instructions: DI for Headache Activity Restrictions/Additional Instructions: *You have been diagnosed with post lumbar *What to do: At this time stay hydrated please call your neurologist in the morning. *Continue to take medications as directed Diamox as directed Fioricet 1-2 tablets every 4 hours if needed for headache *Follow up with your primary care provider in 2-3 days or call [phone] *Return to ER if you should have increasing pain persistent vomiting fever or any new, worsening or concerning symptoms Prescriptions: New fcwilklcon-tqppoqfkqfpkd-prvw [Fioricet] 50-300-40 mg capsule 1 cap PO Q4-6H PRN (Reason: pain) Qty: 20 0RF No Action methocarbamol 500 mg tablet 500 mg PO TID PRN (Reason: muscle spasm) Qty: 14 0RF lidocaine 5 % adhesive patch,medicated 1 patch topical DAILY Qty: 15 0RF Rx Instructions: leave on most painful area for up to 12 hrs naproxen 250 mg tablet 250 mg PO BID PRN (Reason: pain) Qty: 14 0RF Rx Instructions: Please take with food and water baclofen 20 mg tablet 20 mg PO TID PRN (Reason: pain (scale score 4-6)) Qty: 20 0RF Referrals: ProviderDiana [Primary Care Provider] - Stand Alone Forms: Patient Portal/API
[2023-06-17] MEDS: ONDANSETRON 4 MG/2 ML INJ IV (23:09)
[2023-06-17] MEDS: KETOROLAC 30 MG/ML VIAL 15 MG IV (23:10)
[2023-06-17] MEDS: SODIUM CHLORIDE 0.9% 1,000 ML 1000 ML IV (23:10)
[2023-06-17] MEDS: BUTALB/APAP/CAFFEINE 50/325/40 TABLET 1 EACH PO (23:35)
[2023-06-17] MEDS: acetaZOLAMIDE 250 MG TABLET PO (23:35)
[2023-06-18 00:20] VITALS: BP 105/56; PULSE 68; RESP 16; TEMP 37; O2SAT 98
== END 2023-06-18 00:25 | disposition home or self-care (01) ==
PROVIDERS: Emergency Provider Emergency Medicine
DX: G97.1 Other reaction to spinal and lumbar puncture (principal); R51.9 Headache, unspecified; M54.2 Cervicalgia
CPT/HCPCS: 96361; 96374; 96375; 99284; J1885; J2405

== ENCOUNTER → 2024-06-02 15:00 | Outpatient (CLI) | payer OTHER, SELFPAY ==
[2024-06-02 16:29] LABS: Add Manual Diff / Slide Review NO; Basophils Absolute Auto 0 /uL (0-100); Basophils Percent Auto 0.5 % (0-2); Eosinophils Absolute Auto 100 /uL (0-450); Eosinophils Percent Auto 1.2 % (2-4); Hematocrit 37.7 % (36-46); Hemoglobin 12.2 g/dL (12.0-16.0); Lymphocytes Absolute Auto 2600 /uL (1100-4500); Lymphocytes Percent Auto 43.2 % (25-40); Mean Corpuscular HGB Conc 32.2 % (30-36); Mean Corpuscular Hemoglobin 26.6 PG (26-34); Mean Corpuscular Volume 82.6 fL (80-100); Monocytes Absolute Auto 500 /uL (0-900); Monocytes Percent Auto 8.2 % (3-14); Neutrophils Absolute Auto 2900 /uL (1500-7000); Neutrophils Percent Auto 46.9 % (50-75); Platelet Count 289 X10^3/uL (150-400); Red Blood Cell Count 4.56 X10^6/uL (4.0-5.2); Red Cell Distribution Width 14.1 % (11.6-14.8); White Blood Cell Count 6.1 X10^3/uL (4.5-11.0)
== END ==
PROVIDERS: Referring Provider Chiropractor; Visit Provider Chiropractor
DX: D64.9 Anemia, unspecified (principal)
CPT/HCPCS: 36415; 85025

== ENCOUNTER 2024-11-20 16:03 | Emergency (ER) | payer OTHER, SELFPAY ==
[2024-11-20 16:07] VITALS: BP 128/66; PULSE 70; RESP 15; TEMP 36.6; O2SAT 99; BMI 37.5
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
[2024-11-20] MEDS: ACETAMINOPHEN 325 MG TABLET 975 MG PO (17:14)
[2024-11-20] MEDS: LIDOCAINE 5% PATCH 1 EACH TOP (17:14)
[2024-11-20] MEDS: methocarbamoL 500 MG TABLET PO (17:14)
[2024-11-20 18:29] VITALS: BP 117/68; PULSE 77; RESP 16; O2SAT 95
== END 2024-11-20 18:32 | disposition home or self-care (01) ==
PROVIDERS: Emergency Provider Physician Assistant
DX: S16.1XXA Strain of muscle, fascia and tendon at neck level, initial encounter (principal); S39.012A Strain of muscle, fascia and tendon of lower back, initial encounter; V89.2XXA Person injured in unspecified motor-vehicle accident, traffic, initial encounter; Z87.891 Personal history of nicotine dependence; R51.9 Headache, unspecified
CPT/HCPCS: 81025; 99283

== ENCOUNTER → 2025-02-05 11:51 | Outpatient (CLI) | payer OTHER, SELFPAY ==
--- NOTE | 2025-02-05 11:56 | DI.RAD.S_ITS ---
PROCEDURE: XR LUMBAR SPINE 2-3V INDICATIONS: Low back pain, unspecified TECHNIQUE: 3 views of the lumbar spine were acquired. COMPARISON: None. FINDINGS: Bones: 5 dez-lsu-cxakatf vertebrae are present. There is levoscoliosis centered at the thoracolumbar junction. No vertebral body compression fractures. No suspicious bony lesions. Soft tissues: Overlying bowel gas pattern is normal. 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 No suspicious soft tissue calcifications. IMPRESSION: Levoscoliosis at the thoracolumbar junction. No acute osseous abnormalities. Dictated by: Jose Urias M.D. on 02/05/2025 at 15:24 Approved by: Jose Urias M.D. on 02/05/2025 at 15:26
--- NOTE | 2025-02-05 11:56 | DI.US.S_ITS ---
PROCEDURE: US PELVIC COMPLETE INDICATIONS: PERSISTENT PELVIC PAIN TECHNIQUE: Real-time scanning was performed of the pelvic organs, with image documentation. Additional endovaginal scanning was necessary due to incomplete visualization of the adnexal and endometrial structures by transabdominal scanning. COMPARISON: None. FINDINGS: Uterus: Uterus is anteverted and normal in size at 6.5 x 4.7 x 3.3 cm. The myometrium is homogeneous. The endometrium measures eight mm combined thickness. Normal vascular flow in the myometrium and endometrium. Ovaries: The right ovary measures 4.1 x 2.2 x 1.9 cm, with a calculated ovarian volume of 9.0 cc. The left ovary measures 4.2 x 2.0 x 1.8 cm, with a calculated ovarian volume of 7.9 cc. The ovaries have a normal sonographic appearance. Greater than 12 follicles can be seen in each ovary. No adnexal masses are seen. Other: Trace physiologic cul-de-sac fluid. IMPRESSION: Several subcentimeter follicles on each ovary. Neither ovary is significantly enlarged. In the setting of ovarian dysfunction and hyperandrogen state, this may indicate polycystic ovarian syndrome. Clinical correlation recommended. We strive to produce accurate, complete, and clear reports of imaging services. To assist us in improving patient care, this report was composed using standard report templates and voice recognition software. Therefore, it may contain abnormal punctuation, insertions and/or omissions. Occasional wrong-word or sound-alike substitutions may occur. Though we review the report and make efforts to correct it, we do recommend that the report be read carefully in proper context to recognize any text inaccuracies. Dictated by: Nancy Santoyo M.D. on 02/06/2025 at 14:06 Approved by: Nancy Santoyo M.D. on 02/06/2025 at 14:11
--- NOTE | 2025-02-05 11:56 | DI.RAD.S_ITS ---
PROCEDURE: XR PELVIS 1-2V INDICATIONS: PERSISTENT PELVIC PAIN TECHNIQUE: Single view(s) of the pelvis acquired. COMPARISON: None. FINDINGS: Bones: No fractures or dislocations. No suspicious bony lesions. Soft tissues: Visualized bowel gas pattern is normal. 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 No suspicious soft tissue calcifications. IMPRESSION: No acute bony abnormality. Dictated by: Jose Urias M.D. on 02/05/2025 at 15:27 Approved by: Jose Urias M.D. on 02/05/2025 at 15:27
== END ==
PROVIDERS: Referring Provider Family Medicine; Visit Provider Family Medicine
DX: R10.2 Pelvic and perineal pain (principal); S33.5XXA Sprain of ligaments of lumbar spine, initial encounter; M54.50 Low back pain, unspecified; M62.40 Contracture of muscle, unspecified site; M41.86 Other forms of scoliosis, lumbar region
CPT/HCPCS: 72100; 72170; 76830; 76856